=== PATIENT | female | born 1960 | race Caucasian/White ===

== ENCOUNTER → 2016-06-27 | Outpatient (REF) | payer MEDICARE ==
[2016-06-27 20:11] LABS: ALBUMIN 3.3 GM/DL (3.2-5.2); ALBUMIN/GLOBULIN RATIO 0.97 (1.00-1.93); ALKALINE PHOSPHATASE 73 U/L (45-117); ALT/SGPT 51 U/L (12-78); ANION GAP 7 MEQ/L (8-16); AST/SGOT 36 U/L (15-37); BILIRUBIN,TOTAL 0.9 MG/DL (0.2-1.0); BLOOD UREA NITROGEN 13 MG/DL (7-18); CALCIUM LEVEL 8.8 MG/DL (8.5-10.1); CARBON DIOXIDE LEVEL 32 MEQ/L (21-32); CHLORIDE LEVEL 104 MEQ/L (98-107); CREATININE FOR GFR 0.97 MG/DL (0.55-1.02); GLOMERULAR FILTRATION RATE > 60.0 (>51); GLUCOSE, FASTING 107 MG/DL (70-105); POTASSIUM SERUM 3.9 MEQ/L (3.5-5.1); SODIUM LEVEL 143 MEQ/L (136-145); TOTAL PROTEIN 6.7 GM/DL (6.4-8.2)
[2016-06-27 20:32] LABS: BASO % 0.4 % (0.0-1.0); EOS # 0.1 K/mm3 (0.0-0.50); EOS % 1.2 % (0.0-3.0); LARGE UNSTAINED CELL # 0.1 K/mm3 (0.0-0.4); LYMPH # 1.2 K/mm3 (1.5-4.5); LYMPH % 24.8 % (24.0-44.0); MEAN CORPUSCULAR HGB CONC 32.9 g/dl (32.0-36.5); MEAN CORPUSCULAR VOLUME 88.2 fl (80.0-96.0); MONO # 0.3 K/mm3 (0.0-0.8); MONO % 6.9 % (0.0-5.0); NEUTROPHILS % 63.7 % (36.0-66.0); PLATELET COUNT, AUTOMATED 176 k/mm3 (150-450); RED CELL DISTRIBUTION WIDTH 13.5 % (11.5-14.5); WHITE BLOOD COUNT 4.7 K/mm3 (4.0-10.0)
== END ==
LOC: M LABDRAW1 17:24
PROVIDERS: ATTEND Psychiatry & Neurology Neurology
DX: I10 Essential (primary) hypertension (principal); G35 Multiple sclerosis

== ENCOUNTER → 2016-07-07 | Outpatient (CLI) | payer MEDICARE ==
--- NOTE | 2016-07-07 14:02 | REP ---
MR BRAIN WITHOUT AND WITH CONTRAST: HISTORY: Multiple sclerosis. Contrast: ProHance 29 mL. COMPARISON: 03/24/2013 Several punctate areas of increased signal intensity are present in the periventricular white matter. These are unchanged compared to the previous study. There are no new areas of abnormal signal intensity. There is no intraparenchymal hemorrhage, infarct, mass or midline shift. There is no abnormal enhancement. The ventricular system is normal in appearance. There is no extracerebral collection. The sinuses are clear. IMPRESSION: There are several punctate areas of increased signal intensity in the periventricular white matter unchanged compared to the previous study. Signed by Adrián Beauchamp MD 07/07/2016 02:04 P
--- NOTE | 2016-07-07 14:05 | REP ---
MRA CAROTIDS WITHOUT CONTRAST: HISTORY: Dizziness. 2D [id number] MR angiography was performed at the level of the carotid bifurcations. The distal common carotid arteries and origins of the external and ___internal carotid arteries are normal. The vertebral arteries are patent. The left vertebral artery is dominant. There are no atherosclerotic lesions. IMPRESSION: Normal MRA carotids. Signed by Adrián Beauchamp MD 07/07/2016 02:07 P
== END ==
LOC: M RAD 10:01
PROVIDERS: ATTEND Psychiatry & Neurology Neurology
DX: G35 Multiple sclerosis (principal); R42 Dizziness and giddiness
CPT/HCPCS: 70547; 70553; A9576

== ENCOUNTER → 2017-02-06 | Outpatient (REF) | payer MEDICARE ==
[2017-02-06 14:05] LABS: BASO % 0.4 % (0.0-1.0); EOS # 0.1 10^3/uL (0.0-0.50); EOS % 1.2 % (0.0-3.0); IMMATURE GRANULOCYTE % 0.2 % (0-0); LYMPH % 19.7 % (24.0-44.0); MEAN CORPUSCULAR HGB CONC 33.3 g/dl (32.0-36.5); MEAN CORPUSCULAR VOLUME 84.1 fl (80.0-96.0); MONO # 0.3 10^3/uL (0.0-0.8); NEUTROPHILS # 3.8 10^3/uL (1.8-7.7); NEUTROPHILS % 72.5 % (36.0-66.0); PLATELET COUNT, AUTOMATED 247 10^3/uL (150-450); RED CELL DISTRIBUTION WIDTH 13.2 % (11.5-14.5); WHITE BLOOD COUNT 5.2 10^3/uL (4.0-10.0)
[2017-02-06 14:22] LABS: ALBUMIN 3.7 GM/DL (3.2-5.2); ALBUMIN/GLOBULIN RATIO 1.09 (1.00-1.93); BILIRUBIN,TOTAL 1.1 MG/DL (0.2-1.0); CALCIUM LEVEL 9.6 MG/DL (8.5-10.1); CREATININE FOR GFR 1.08 MG/DL (0.55-1.02); GLOMERULAR FILTRATION RATE 56.1 (>51); POTASSIUM SERUM 3.6 MEQ/L (3.5-5.1); TOTAL PROTEIN 7.1 GM/DL (6.4-8.2)
== END ==
LOC: M LABNEURO 13:20
PROVIDERS: ATTEND Psychiatry & Neurology Neurology
DX: G35 Multiple sclerosis (principal)

== ENCOUNTER → 2017-08-20 | Outpatient (REF) | payer MEDICARE, OTHER ==
[2017-08-20 19:00] LABS: BASO % 0.2 % (0.0-1.0); EOS # 0.1 10^3/uL (0.0-0.50); EOS % 1.9 % (0.0-3.0); HEMOGLOBIN 13.9 g/dl (12.0-15.5); IMMATURE GRANULOCYTE % 0.2 % (0-3.0); LYMPH # 1.4 10^3/uL (1.5-4.5); LYMPH % 25.9 % (24.0-44.0); MEAN CORPUSCULAR HEMOGLOBIN 28.4 pg (27.0-33.0); MEAN CORPUSCULAR HGB CONC 33.1 g/dl (32.0-36.5); MEAN CORPUSCULAR VOLUME 85.9 fl (80.0-96.0); MONO # 0.3 10^3/uL (0.0-0.8); MONO % 5.6 % (0.0-5.0); NEUTROPHILS # 3.5 10^3/uL (1.8-7.7); NEUTROPHILS % 66.2 % (36.0-66.0); PLATELET COUNT, AUTOMATED 188 10^3/uL (150-450); RED BLOOD COUNT 4.89 10^6/uL (4.00-5.40); RED CELL DISTRIBUTION WIDTH 13.8 % (11.5-14.5); WHITE BLOOD COUNT 5.3 10^3/uL (4.0-10.0)
[2017-08-20 19:07] LABS: ALBUMIN 3.5 GM/DL (3.2-5.2); ALBUMIN/GLOBULIN RATIO 0.97 (1.00-1.93); ALKALINE PHOSPHATASE 87 U/L (45-117); ALT/SGPT 48 U/L (12-78); ANION GAP 4 MEQ/L (8-16); AST/SGOT 35 U/L (7-37); BILIRUBIN,TOTAL 0.7 MG/DL (0.2-1.0); BLOOD UREA NITROGEN 17 MG/DL (7-18); CALCIUM LEVEL 8.6 MG/DL (8.5-10.1); CARBON DIOXIDE LEVEL 33 MEQ/L (21-32); CHLORIDE LEVEL 107 MEQ/L (98-107); CREATININE FOR GFR 0.93 MG/DL (0.55-1.30); GLOMERULAR FILTRATION RATE > 60.0 (>51); GLUCOSE, FASTING 101 MG/DL (70-100); POTASSIUM SERUM 4.1 MEQ/L (3.5-5.1); RHEUMATOID FACTOR QUANT < 10.0 IU/ML (<15.0); SODIUM LEVEL 144 MEQ/L (136-145); TOTAL PROTEIN 7.1 GM/DL (6.4-8.2)
[2017-08-20 19:31] LABS: ERYTHROCYTE SEDIMENTATION RATE 11 mm/hr (0-30)
[2017-08-22 14:17] LABS: ANTINUCLEAR ANTIBODIES DIRECT Negative (Negative)
== END ==
LOC: M LABNEURO 14:11
DX: G35 Multiple sclerosis (principal); M19.90 Unspecified osteoarthritis, unspecified site
CPT/HCPCS: 80053

== ENCOUNTER 2017-12-06 23:53 | Emergency (ER) | payer MEDICARE, OTHER ==
[2017-12-07] MEDS: LORazepam 2 MG/ML VIAL (J2060) IV (00:58)
[2017-12-07] MEDS: MORPHINE 4 MG/ML 1ML VIAL/SYRINGE (J2270) IV ×2 (00:58→01:45)
[2017-12-07] MEDS: ONDANSETRON 4MG/2ML VIAL (J2405) IV (00:58)
[2017-12-07 01:10] LABS: BASO % 0.3 % (0.0-1.0); EOS # 0.1 10^3/uL (0.0-0.50); EOS % 1.1 % (0.0-3.0); HEMATOCRIT 41.3 % (36.0-47.0); HEMOGLOBIN 14.1 g/dl (12.0-15.5); IMMATURE GRANULOCYTE % 0.3 % (0-3.0); LYMPH # 1.1 10^3/uL (1.5-4.5); LYMPH % 16.9 % (24.0-44.0); MEAN CORPUSCULAR HEMOGLOBIN 28.4 pg (27.0-33.0); MEAN CORPUSCULAR HGB CONC 34.1 g/dl (32.0-36.5); MEAN CORPUSCULAR VOLUME 83.3 fl (80.0-96.0); MONO # 0.5 10^3/uL (0.0-0.8); MONO % 7.8 % (0.0-5.0); NEUTROPHILS # 4.7 10^3/uL (1.8-7.7); NEUTROPHILS % 73.6 % (36.0-66.0); PLATELET COUNT, AUTOMATED 192 10^3/uL (150-450); RED BLOOD COUNT 4.96 10^6/uL (4.00-5.40); RED CELL DISTRIBUTION WIDTH 13.2 % (11.5-14.5); WHITE BLOOD COUNT 6.3 10^3/uL (4.0-10.0)
[2017-12-07 01:57] LABS: ANION GAP 11 MEQ/L (8-16); BLOOD UREA NITROGEN 16 MG/DL (7-18); CALCIUM LEVEL 8.9 MG/DL (8.5-10.1); CARBON DIOXIDE LEVEL 26 MEQ/L (21-32); CHLORIDE LEVEL 105 MEQ/L (98-107); CREATININE FOR GFR 1.14 MG/DL (0.55-1.30); GLOMERULAR FILTRATION RATE 52.7 (>51); GLUCOSE, FASTING 92 MG/DL (70-100); POTASSIUM SERUM 3.7 MEQ/L (3.5-5.1); SODIUM LEVEL 142 MEQ/L (136-145)
[2017-12-07 02:01] LABS: LACTIC ACID SEPSIS PROTOCOL 1.8 MMOL/L (0.4-2.0)
== END 2017-12-07 03:57 | disposition home or self-care (01) ==
LOC: M ED 23:53
DX: K42.9 Umbilical hernia without obstruction or gangrene (principal); R11.0 Nausea; G35 Multiple sclerosis; I10 Essential (primary) hypertension; E78.5 Hyperlipidemia, unspecified; Z79.899 Other long term (current) drug therapy
CPT/HCPCS: J2270

== ENCOUNTER → 2018-01-01 | Outpatient (REF) | payer MEDICARE, OTHER ==
[2018-01-01 17:13] LABS: BASO % 0.5 % (0.0-1.0); EOS # 0.1 10^3/uL (0.0-0.50); EOS % 1.1 % (0.0-3.0); HEMATOCRIT 42.6 % (36.0-47.0); LYMPH # 0.9 10^3/uL (1.5-4.5); LYMPH % 21.5 % (24.0-44.0); MEAN CORPUSCULAR HEMOGLOBIN 28.8 pg (27.0-33.0); MEAN CORPUSCULAR HGB CONC 32.9 g/dl (32.0-36.5); MEAN CORPUSCULAR VOLUME 87.7 fl (80.0-96.0); MONO # 0.4 10^3/uL (0.0-0.8); MONO % 8.9 % (0.0-5.0); PLATELET COUNT, AUTOMATED 243 10^3/uL (150-450); RED BLOOD COUNT 4.86 10^6/uL (4.00-5.40); RED CELL DISTRIBUTION WIDTH 13.8 % (11.5-14.5); WHITE BLOOD COUNT 4.4 10^3/uL (4.0-10.0)
[2018-01-01 17:23] LABS: ALBUMIN 3.6 GM/DL (3.2-5.2); ALKALINE PHOSPHATASE 96 U/L (45-117); ALT/SGPT 58 U/L (12-78); ANION GAP 7 MEQ/L (8-16); AST/SGOT 39 U/L (7-37); BILIRUBIN,TOTAL 0.8 MG/DL (0.2-1.0); BLOOD UREA NITROGEN 15 MG/DL (7-18); CALCIUM LEVEL 8.5 MG/DL (8.5-10.1); CARBON DIOXIDE LEVEL 29 MEQ/L (21-32); CHLORIDE LEVEL 105 MEQ/L (98-107); CREATININE FOR GFR 0.94 MG/DL (0.55-1.30); GLOMERULAR FILTRATION RATE > 60.0 (>51); GLUCOSE, FASTING 82 MG/DL (70-100); POTASSIUM SERUM 4.9 MEQ/L (3.5-5.1); SODIUM LEVEL 141 MEQ/L (136-145); TOTAL PROTEIN 7.2 GM/DL (6.4-8.2)
== END ==
LOC: M LABNEURO 16:59
DX: G35 Multiple sclerosis (principal)
CPT/HCPCS: 80053

== ENCOUNTER → 2018-02-11 | Outpatient (CLI) | payer MEDICARE ==
[~2018-02-11] MED LIST: GASTROGRAFIN SOLUTION 30ML (Q9963) As Ordered
== END ==
LOC: M RAD 11:04
DX: K43.0 Incisional hernia with obstruction, without gangrene (principal); K59.8 Other specified functional intestinal disorders; Z90.49 Acquired absence of other specified parts of digestive tract
CPT/HCPCS: Q9963

== ENCOUNTER 2018-03-22 08:31 | Day surgery (SDC) | payer MEDICARE ==
[~2018-03-22] VITALS: Ht 167.6 cm; Wt 138.7 kg
[~2018-03-22 08:31] MED LIST changes: +AMLO5TAB6 PO; +ATOR40TA75 PO; +AVON1KIT IM; +BACL10TA2 PO; +CELE1CAP9 PO; +ESCI20TA PO; -GASTROGRAFIN SOLUTION 30ML (Q9963) As Ordered; +LIDOCAINE 2% INJ 100 MG/5 ML SDV (FOR ANES.) As Ordered ONE; +LYRI150C PO; +MIDAZOLAM INJ 2 MG/2 ML VIAL (J2250) As Ordered ONE; +NORC7.5T35 PO; +OMEP40CA2 PO; +PROPOFOL 200 MG/20 ML VIAL As Ordered ONE; +ROCURONIUM BROMIDE 50 MG/5 ML VIAL As Ordered ONE; +VITA200028 PO; +VITA50005 PO; +fentaNYL 250 MCG/5 ML INJECTION (J3010) As Ordered ONE
[2018-03-22] MEDS ORDERED: LR 1,000 ML IV ONE (09:00)
[2018-03-22] MEDS ORDERED: BUPIVACAINE/EPIN 0.25% 30 ML VIAL As Ordered ONE (10:29)
[2018-03-22] MEDS ORDERED: KETOROLAC 60 MG/2 ML VIAL (J1885) As Ordered ONE (11:19)
[2018-03-22] MEDS ORDERED: NEOSTIGMINE 10 MG/10 ML VIAL (J2710) As Ordered ONE (11:19)
[2018-03-22] MEDS ORDERED: METOCLOPRAMIDE INJ 10MG/2ML VIAL (J2765) As Ordered ONE (11:19)
[2018-03-22] MEDS ORDERED: dexameTHASONE 4 MG/ML 1ML VIAL (J1100) As Ordered ONE (11:19)
[2018-03-22] MEDS ORDERED: ONDANSETRON 4MG/2ML VIAL (J2405) As Ordered ONE (11:19)
[2018-03-22] MEDS ORDERED: GLYCOPYRROLATE INJ 0.2 MG/ML 2 ML VIAL As Ordered ONE (11:19)
[2018-03-22] MEDS ORDERED: fentaNYL 100 MCG/2 ML INJECTION (J3010) As Ordered ONE (12:57)
[2018-03-22] MEDS ORDERED: PERCOCET 5MG/325MG TAB As Ordered ONE ×2 (12:57→14:27)
[2018-03-22] MEDS ORDERED: LR 1,000 ML IV SCH (13:00)
[2018-03-22] MEDS ORDERED: METOCLOPRAMIDE INJ 10MG/2ML VIAL (J2765) IV PRN (13:00)
[2018-03-22] MEDS ORDERED: ONDANSETRON 4MG/2ML VIAL (J2405) IV PRN (13:00)
[2018-03-22] MEDS: fentaNYL 100 MCG/2 ML INJECTION (J3010) IV PRN ×2 (13:00→13:05)
[2018-03-22] MEDS ORDERED: MEPERIDINE INJ 25 MG/ML VIAL (J2175) IV PRN (13:00)
[2018-03-22] MEDS: PERCOCET 5MG/325MG TAB PO PRN ×2 (13:03→14:28)
[2018-03-22] MEDS ORDERED: NORCO, ANEXSIA 5/325MG TABLET (HYDROcodone/ACETAMINOPHEN) PO PRN (13:15)
--- NOTE | 2018-03-22 15:08 | RO ---
DATE OF PROCEDURE: 03/22/[address] Brown PREOPERATIVE DIAGNOSIS: Incarcerated incisional hernia. POSTOPERATIVE DIAGNOSIS: Incarcerated incisional hernia. POSTOPERATIVE DIAGNOSIS: Laparoscopic incarcerated incisional hernia repair with mesh. SURGEON: Dr. Brown ENTERPRISE DATA ARCHITECT: Kathleen Steve ANESTHESIA: General. ESTIMATED BLOOD LOSS: 5 COMPLICATIONS: None. INDICATION FOR PROCEDURE: The patient 58-year-old female with a large incisional hernia just around the umbilicus, recommendation is to proceed laparoscopic possible open repair. The risks and benefits of the procedure not limited but including bleeding, infection, hernia formation, hernia recurrence, damage surrounding structure need for surgery discussed detail with the patient and informed consent was obtained and procedure was planned. PROCEDURE: The patient brought back to operating room six after sufficient sedation. Abdomen was sterilely prepped and draped. Next a time out was done to confirm proper patient and proper procedure. Following that a 5 mm incision was made in the left lower quadrant. The Veress needle inserted and the abdomen was insufflated to 50 mmHg mercury. Next Veress needle was removed and a 5 mm OptiVu port used to gain access to the abdomen. Once abdomen was entered another 5 mm port was placed in the left lower quadrant. There is a majority of the omentum all stuffed within this incision hernia. It was carefully dissected free using blunt dissection. Once it was completely reduced the rest of the hernia was dissected free using the Enseal along with the anterior abdominal wall and the distal falciform ligament to create a flap space for mesh placement. Once this was all freed up 12 cm round Parietex mesh was rolled up inside the abdomen. Then transvaginal sutures were brought out through the abdominal wall to hold it in place. 1 cm transvaginal sutures were placed, I started to place a row of secure strap tacks around but due to her large body habitus she was very wide. The angles were very difficult for tach placement. Therefore upon placing packs of mesh slid inferiorly to the point where we did not have sufficient coverage for the defect. I then removed the mesh from the abdomen and took a 9 cm round Parietex mesh fashioned it the same way with the transvaginal sutures and the restrapped tacks this time holding it in place. Once this was completed the abdomen was desufflated. Skin incisions closed with 4-0 Vicryl subcu sutures. The abdomen was cleaned and dried. Steri-Strips, 4x4 and tape were applied thus ending procedure.
[2018-03-22 15:10] VITALS: BP 118/63
== END 2018-03-22 15:17 | disposition home or self-care (01) ==
LOC: M SDC 08:31
PROVIDERS: ATTEND Surgery
DX: K43.0 Incisional hernia with obstruction, without gangrene (principal); I10 Essential (primary) hypertension; E78.5 Hyperlipidemia, unspecified; K21.9 Gastro-esophageal reflux disease without esophagitis; Z79.899 Other long term (current) drug therapy
CPT/HCPCS: 49653; C1781; J0690; J1100; J1885; J2250; J2405; J2710; J2765; J3010

== ENCOUNTER 2018-10-16 16:06 | Outpatient (CLI) | payer MEDICARE ==
[~2018-10-16] VITALS: Ht 167.6 cm; Wt 138.7 kg
[~2018-10-16 16:06] MED LIST changes: -LIDOCAINE 2% INJ 100 MG/5 ML SDV (FOR ANES.) As Ordered ONE; -MIDAZOLAM INJ 2 MG/2 ML VIAL (J2250) As Ordered ONE; +NORC1TAB8 PO; -NORC7.5T35 PO; -PROPOFOL 200 MG/20 ML VIAL As Ordered ONE; -ROCURONIUM BROMIDE 50 MG/5 ML VIAL As Ordered ONE; -fentaNYL 250 MCG/5 ML INJECTION (J3010) As Ordered ONE
[2018-10-16 16:15] VITALS: BP 137/83
[2018-10-16] MEDS ORDERED: methylPREDNISolone 500 MG, VIAL MATE ADAPTER 1 EACH in D5W 250 ML IV ONE (16:30)
[2018-10-16 17:40] VITALS: BP 132/75
== END 2018-10-16 17:40 | disposition home or self-care (01) ==
LOC: M INFU 16:06
PROVIDERS: ATTEND Psychiatry & Neurology Neurology
DX: G35 Multiple sclerosis (principal)
CPT/HCPCS: 96365; J2930

== ENCOUNTER → 2018-11-29 | Outpatient (CLI) | payer MEDICARE ==
--- NOTE | 2018-11-29 11:50 | REP ---
MRI of the brain without contrast Indication: Multiple sclerosis. Other muscle spasm. Disorder of muscle, unspecified. Comparison: MRI brain of 07/07/2016. Technique: Multi sequence multiplanar MRI of the brain utilizing MS protocol was performed without and with contrast. A total 28 ml of ProHance was administered intravenously. Findings: There is no restricted diffusion to suggest acute ischemia or infarction. There are minimal T2 hyperintensities within the periventricular subcortical white matter which are nonspecific, similar to prior. There is no abnormal enhancement. The ventricles and sulci are symmetric. There is no intra- or extra-axial fluid collection. There is no mass effect. There is no midline shift or basal cistern effacement. The visualized flow voids are preserved. The visualized paranasal sinuses and mastoid air cells are clear. Impression: Minimal periventricular and subcortical white matter changes which are nonspecific but similar to prior. No new or enhancing lesion. Electronically Signed by Kimberly Bruce MD 11/29/2018 11:41 A
== END ==
LOC: M PLARAD 09:45
PROVIDERS: ATTEND Psychiatry & Neurology Neurology
DX: G35 Multiple sclerosis (principal)

== ENCOUNTER → 2019-05-16 | Outpatient (CLI) | payer MEDICARE ==
[~2019-05-16] MED LIST changes: -OMEP40CA2 PO; +OMEP40CA97 PO
--- NOTE | 2019-05-16 12:27 | REPVR ---
PROCEDURE INFORMATION: Exam: MR Lumbar Spine Without Contrast. Exam date and time: 05/16/2019 11:35 AM Age: 59 years old Clinical indication: Low back pain; Additional info: Lbp, radiculopathy TECHNIQUE: Imaging protocol: Multiplanar magnetic resonance images of the lumbar spine without intravenous contrast. COMPARISON: MRI-Spine, L.S. without con 01/08/2015 8:53 AM FINDINGS: Vertebrae: Unremarkable. Spinal cord: Normal signal. No cord compression. L1-L2: No significant disc disease. No significant spinal canal stenosis. No neural foraminal stenosis. L2-L3: There is disc desiccation. There is mild disc bulging. There is facet arthropathy and ligamentum flavum hypertrophy. There is mild spinal canal stenosis. L3-L4: There is degenerative disc disease including disc space narrowing and dessication. There is mild disc bulging. There is facet arthropathy and ligamentum flavum hypertrophy. There is mild spinal canal stenosis. L4-L5: There is grade 1 anterior spondylolisthesis at L4/5. There is disc space narrowing and desiccation. There are moderate degenerative end plate changes at this level. There is mild disc bulging. There is a small right paracentral disc protrusion. There is moderate bilateral neural foraminal narrowing, right worse than left. There is exuberant facet arthropathy and ligamentum flavum hypertrophy. There is mild/moderate spinal canal stenosis. L5-S1: There is disc space narrowing and disc desiccation within the lower thoracic spine. There is minimal retrolisthesis at L5/S1. There is degenerative disc disease including disc space narrowing and dessication. There is a moderate disc bulge with a small superimposed central disc herniation. Disc bulging extends into both neural foramen causing moderate bilateral neural foraminal narrowing, right worse than left. Soft tissues: Unremarkable. IMPRESSION: 1. There is disc space narrowing and disc desiccation within the lower thoracic spine. 2. Multilevel degenerative changes involving the lumbar spine causing variable degrees of spinal canal and neuroforaminal narrowing as described above. Electronically signed by: Boston Estes On 05/16/2019 12:27:39 PM
== END ==
LOC: M PLARAD 10:44
PROVIDERS: ATTEND Psychiatry & Neurology Neurology
DX: M51.26 Other intervertebral disc displacement, lumbar region (principal); M51.27 Other intervertebral disc displacement, lumbosacral region; M51.36 Other intervertebral disc degeneration, lumbar region; M51.37 Other intervertebral disc degeneration, lumbosacral region; M54.16 Radiculopathy, lumbar region

== ENCOUNTER 2019-05-26 11:24 | Emergency (ER) | payer MEDICARE ==
[~2019-05-26] VITALS: Ht 167.6 cm; Wt 137.3 kg
[2019-05-26] MEDS ORDERED: OXYC1TAB23 (11:32)
[2019-05-26] MEDS ORDERED: PREG150C (11:32)
[2019-05-26] MEDS ORDERED: CYCL10TA (11:32)
--- NOTE | 2019-05-26 12:33 | REP ---
Duplex extremity venous ultrasound: Left lower extremity. History: Left knee injection. Swelling and pain. Rule out DVT. Findings: The deep veins are anechoic and fully compressible from the groin to the popliteal fossa in the left lower extremity. Color flow imaging is homogeneous. Spectral Doppler interrogation demonstrates intact respiratory variation in flow and normal manual augmentation of flow. There is no evidence of deep vein thrombosis. Impression: Negative left lower extremity duplex venous ultrasound. No evidence of deep vein thrombosis. Electronically Signed by Antonio Walton MD 05/26/2019 12:24 P
--- NOTE | 2019-05-26 12:46 | REP ---
Ultrasound of the left knee soft tissues: The patient recently had a left knee injection. It is unclear whether this was an intra-articular or periarticular injection. There is a focal fluid collection posterior and posteromedial measuring 13.5 x 2.3 x 4.2 cm, possibly a Tello's cyst. In addition, there is focal soft tissue edema of the proximal left calf posteriorly. Electronically Signed by Haris Cyr MD 05/26/2019 12:38 P
[2019-05-26 13:36] VITALS: BP 99/61
== END 2019-05-26 13:38 | disposition home or self-care (01) ==
LOC: M ED 11:24
DX: M71.22 Synovial cyst of popliteal space [Baker], left knee (principal); I10 Essential (primary) hypertension; E78.5 Hyperlipidemia, unspecified; K21.9 Gastro-esophageal reflux disease without esophagitis; Z79.899 Other long term (current) drug therapy

== ENCOUNTER → 2019-09-25 | Outpatient (CLI) | payer MEDICARE ==
[~2019-09-25] MED LIST changes: +AMLO1TAB24 PO; -AMLO5TAB6 PO; +CYCL-707; +OXYC1TAB23; +PREG150C
--- NOTE | 2019-10-08 11:29 | SLEEPCENT ---
DATE OF PROCEDURE: 09/25/2019 ORDERED BY: ABILIO Godinez Nocturnal polysomnography was performed for evaluation of sleep physiology in this patient with history of excessive somnolence, snoring, and nonrestorative sleep. 8 hours and 14 minutes of data were reviewed. There were 444.5 minutes of sleep identified. Sleep latency was mildly prolonged at 28.5 minutes. Rapid eye movement (REM) latency was more so prolonged at 171 minutes. Sleep architecture showed some fragmentation and poor sleep progression. There were 2 REM cycles noted. Overall sleep efficiency was 90.8%. The patient's electrocardiogram showed a sinus rhythm with an average heart rate of 48 beats per minute. Electroencephalogram (EEG) showed normal waveforms for awake and sleep. There were 161 respiratory events identified of 10 seconds in duration or greater for an apnea-hypopnea index of 21.7. The events were obstructive not exclusive to sleep stage nor body posture. Arousals from respiratory events occurred 5.8 times per hour and oxygen desaturations were seen into the 70s. There was some activity noted in the limb leads but limb movement arousal index was only 2.8. IMPRESSION: Obstructive sleep apnea syndrome (G47.33). Apnea-hypopnea index 21.7. RECOMMENDATIONS: The patient should be encouraged to return to the sleep disorder center for pressure therapy. In the interim, alcohol and sedative avoidance should be practiced and caution exercised during operation of motor vehicles.
== END ==
LOC: M SLEEP 20:00
PROVIDERS: ATTEND Nurse Practitioner Family
DX: R06.83 Snoring (principal)

== ENCOUNTER → 2019-10-31 | Outpatient (CLI) | payer MEDICARE ==
--- NOTE | 2019-11-28 14:32 | SLEEPCENT ---
DATE: 10/31/2019 ORDERED BY: Marly Littlejohn Nocturnal polysomnography was performed for the titration of pressure therapy in this patient with obstructive sleep apnea syndrome, apnea-hypopnea index 21.7. For testing, a ResMed AirFit F20 full-face mask of small size was used. There was 4 cm of water pressure applied to the circuit, and the lights were extinguished. There was 7 hours and 47 minutes of data reviewed. There was 385.5 minutes of sleep identified. Sleep latency was normal at 16 minutes. REM latency was delayed at 177 minutes. Sleep architecture improved on optimal pressure therapy. There were two REM cycles noted. Overall sleep efficiency is 84.3%. The electrocardiogram showed a sinus rhythm with an average heart rate of 42 beats per minute. EEG showed normal waveforms for wake and sleep. Respiratory events were full palliated with CPAP at a pressure of +10, and remaining measures of sleep physiology were normal. IMPRESSION: Obstructive sleep apnea syndrome (G47.33). RECOMMENDATION: Nightly use of pressure therapy, 10 cm of water. MTDD
== END ==
LOC: M SLEEP 20:00
PROVIDERS: ATTEND Nurse Practitioner Family
DX: G47.33 Obstructive sleep apnea (adult) (pediatric) (principal)

== ENCOUNTER → 2020-05-07 | Outpatient (CLI) | payer MEDICARE ==
[~2020-05-07] MED LIST changes: -ESCI20TA PO; +ESCI20TA16 PO
--- NOTE | 2020-05-07 21:12 | REPVR ---
PROCEDURE INFORMATION: Exam: MR Lumbar Spine Without Contrast. Exam date and time: 05/07/2020 2:37 PM Age: 60 years old Clinical indication: Low back pain; Additional info: M54.5- lbp TECHNIQUE: Imaging protocol: Multiplanar magnetic resonance images of the lumbar spine without intravenous contrast. COMPARISON: MRI-Spine, L.S. without con 05/16/2019 11:18 AM FINDINGS: Vertebrae: T1 weighted images demonstrate mottled decreased signal throughout the vertebrae, findings which can be seen in association with chronic anemia or other myeloproliferative abnormality. This should be correlated with clinical evaluation. Slight anterolisthesis of L4 on L5. Spinal cord: Normal signal. No cord compression. L1-L2: See "L5-S1" finding. L2-L3: No significant disc disease. No significant spinal canal stenosis. No neural foraminal stenosis. L3-L4: There is a moderate central spinal stenosis at L3-L4 secondary to diffuse annular bulging, thickened ligamentum flavum with facet joint arthropathy. L4-L5: There is a severe degenerative central spinal stenosis at L4-L5 secondary to the anterolisthesis of L4-L5, diffuse annular bulging, thickened ligamentum flavum with facet joint arthropathy. Moderate foraminal narrowing on the right. L5-S1: Diffusely bulging annulus at L5-S1. Moderate foraminal stenosis on the left and moderate to severe foraminal stenosis on the right. Bilateral facet joint arthropathy with fluid in the left facet joint suggesting synovitis. Soft tissues: Unremarkable. IMPRESSION: 1. T1 weighted images demonstrate mottled decreased signal throughout the vertebrae, findings which can be seen in association with chronic anemia or other myeloproliferative abnormality. This should be correlated with clinical evaluation. 2. Moderate central spinal stenosis L3-L4 and severe central spinal stenosis L4-L5. 3. Bilateral foraminal stenosis at L5-S1 as described above. 4. Bilateral facet joint arthropathy L5-S1 with possible synovitis on the left. Electronically signed by: Jr Samayoa On 05/07/2020 21:12:31 PM
== END ==
LOC: M PLARAD 12:38
PROVIDERS: ATTEND Psychiatry & Neurology Neurology
DX: M48.061 Spinal stenosis, lumbar region without neurogenic claudication (principal); M54.16 Radiculopathy, lumbar region; M51.36 Other intervertebral disc degeneration, lumbar region; M51.37 Other intervertebral disc degeneration, lumbosacral region; M51.27 Other intervertebral disc displacement, lumbosacral region

== ENCOUNTER → 2021-10-25 | Outpatient (CLI) | payer MEDICARE ==
[~2021-10-25] MED LIST changes: +ERGO500029 PO; +GLYCCAP PO; +LEXA1TAB PO; +METO25TA4 PO; +OMEP40CA4 PO; -OMEP40CA97 PO
== END ==
LOC: M PLAIMG 12:34
PROVIDERS: ATTEND Psychiatry & Neurology Neurology
DX: M54.16 Radiculopathy, lumbar region (principal); M48.061 Spinal stenosis, lumbar region without neurogenic claudication; M51.26 Other intervertebral disc displacement, lumbar region; M47.896 Other spondylosis, lumbar region; M47.897 Other spondylosis, lumbosacral region; M48.05 Spinal stenosis, thoracolumbar region; M51.25 Other intervertebral disc displacement, thoracolumbar region; M51.36 Other intervertebral disc degeneration, lumbar region

== ENCOUNTER → 2022-05-02 | Outpatient (CLI) | payer MEDICARE | LOC: M LABSMTC 09:04 | PROVIDERS: ATTEND Neurological Surgery | DX: Z11.52 Encounter for screening for COVID-19 (principal) ==

== ENCOUNTER 2024-09-24 07:36 | Outpatient (CLI) | payer MEDICARE ==
[~2024-09-24] VITALS: Ht 167.6 cm; Wt 116.0 kg
[~2024-09-24 07:36] MED LIST changes: +CELE0.09 PO; -CELE1CAP9 PO; -PREG150C; +PREG150C2
[2024-09-24 07:55] VITALS: BP 143/91; O2SAT 98
[2024-09-24] MEDS: ACETAMINOPHEN 650 MG PO ONE (08:09)
[2024-09-24] MEDS: OCRELIZUMAB 300 MG in NS 250 ML IV ONE (08:58)
[2024-09-24 09:30] VITALS: BP 142/91; O2SAT 99
[2024-09-24 10:00] VITALS: BP 140/87; O2SAT 100
[2024-09-24 10:30] VITALS: BP 134/80; O2SAT 99
[2024-09-24 11:00] VITALS: BP 147/73; O2SAT 100
[2024-09-24 11:55] VITALS: BP 138/86; O2SAT 99
== END 2024-09-24 11:55 ==
LOC: M INFU 07:36
PROVIDERS: ATTEND Psychiatry & Neurology Neurology
DX: G35 Multiple sclerosis (principal); Z88.8 Allergy status to other drugs, medicaments and biological substances
CPT/HCPCS: 96365; 96366; 96375; J2350; J2919

== ENCOUNTER 2024-11-17 18:26 | Inpatient (IN) | payer MEDICARE, MEDICAID ==
[~2024-11-17] VITALS: Ht 167.6 cm; Wt 115.6 kg
[2024-11-17 21:16] LABS: BASO # 0.1 10^3/uL (0.0-0.2); BASO % 0.8 % (0.0-1.0); EOS # 0.0 10^3/uL (0.0-0.5); EOS % 0.3 % (0.0-3.0); LYMPH # 1.3 10^3/uL (1.5-5.0); LYMPH % 20.3 % (24.0-44.0); MONO # 0.6 10^3/uL (0.0-0.8); MONO % 9.7 % (2.0-8.0); NEUTROPHILS # 4.4 10^3/uL (1.5-8.5); NEUTROPHILS % 68.6 % (36.0-66.0); PLATELET COUNT, AUTOMATED 245 10^3/uL (150-450)
[2024-11-17 21:29] LABS: APPEARANCE, URINE CLEAR (CLEAR); BACTERIA, URINE AUTO NEGATIVE (NEGATIVE); BILIRUBIN, URINE AUTO NEGATIVE (NEGATIVE); BLOOD, URINE BLOOD NEGATIVE (NEGATIVE); GLUCOSE, URINE (UA) AUTO NEGATIVE (NEGATIVE); KETONE, URINE AUTO NEGATIVE (NEGATIVE); LEUKOCYTE ESTERASE, URINE AUTO TRACE (NEGATIVE); NITRITE, URINE AUTO NEGATIVE (NEGATIVE); PROTEIN, URINE AUTO NEGATIVE (NEGATIVE); RBC, URINE AUTO 0 /HPF (0-3); SPECIFIC GRAVITY URINE AUTO 1.005 (1.002-1.035); SQUAMOUS EPITHELIAL CELL UR AU 5 /HPF (0-6); UROBILINOGEN, URINE AUTO 0.2 mg/dL (0.0-2.0); WBC, URINE AUTO 4 /HPF (0-3)
[2024-11-17 21:37] LABS: CK-MB VALUE MASS < 1.0 NG/ML (<3.6)
[2024-11-17 21:39] LABS: ALT/SGPT 126 U/L (7.0-40); AST/SGOT 168 U/L (<34); CALCIUM LEVEL 8.9 MG/DL (8.3-10.6); CARBON DIOXIDE LEVEL 28 MMOL/L (20-31); CHLORIDE LEVEL 103 MMOL/L (98-107); CREATININE FOR GFR 1.02 MG/DL (0.55-1.30); GLOMERULAR FILTRATION RATE 62.2 (>45); MAGNESIUM LEVEL 2.5 MG/DL (1.8-2.4); POTASSIUM SERUM 4.5 MMOL/L (3.5-5.1); SODIUM LEVEL 140 MMOL/L (136-145)
[2024-11-17] MEDS: BISACODYL 10 MG SUPP PR ONE (21:43)
[2024-11-17 21:45] LABS: CPK CREATINE PHOSPHOKINASE 30 U/L (34-145)
[2024-11-17] MEDS ORDERED: ISOVUE-370 76% 100 ML VIAL As Ordered ONE (22:50)
[2024-11-17] MEDS: MORPHINE 4 MG/ML 1 ML VIAL IV ONE (23:56)
[2024-11-17] MEDS: NS (Normal Saline) 0.9% 1,000 ML IV ONE (23:56)
[2024-11-18] MEDS: LIDOCAINE 5% PATCH TD ONE (00:33)
[2024-11-18] MEDS ORDERED: MAALOX 30 ML SUSP *UDC PO PRN (00:45)
[2024-11-18] MEDS: NS (Normal Saline) 0.9% 1,000 ML IV SCH (01:20)
[2024-11-18] MEDS: KETOROLAC 30 MG/ML 1 ML VIAL IV ONE (03:19)
[2024-11-18] MEDS: KETOROLAC 30 MG/ML 1 ML VIAL IV SCH (05:24)
[2024-11-18] MEDS: HEPARIN SOD 5000 UNITS/ML 1 ML VIAL/SYRINGE SC SCH (05:25)
[2024-11-18 06:41] LABS: BASO # 0.1 10^3/uL (0.0-0.2); BASO % 0.9 % (0.0-1.0); EOS # 0.0 10^3/uL (0.0-0.5); EOS % 0.2 % (0.0-3.0); LYMPH # 1.1 10^3/uL (1.5-5.0); LYMPH % 19.4 % (24.0-44.0); MONO # 0.6 10^3/uL (0.0-0.8); MONO % 9.6 % (2.0-8.0); NEUTROPHILS # 4.0 10^3/uL (1.5-8.5); NEUTROPHILS % 69.4 % (36.0-66.0); PLATELET COUNT, AUTOMATED 208 10^3/uL (150-450)
[2024-11-18 07:18] LABS: ALT/SGPT 113.0 U/L (7.0-40); AST/SGOT 121.0 U/L (<34); CALCIUM LEVEL 9.0 MG/DL (8.3-10.6); CARBON DIOXIDE LEVEL 27.0 MMOL/L (20-31); CHLORIDE LEVEL 105.0 MMOL/L (98-107); CREATININE FOR GFR 1.02 MG/DL (0.55-1.30); GLOMERULAR FILTRATION RATE 62.2 (>45); MAGNESIUM LEVEL 2.4 MG/DL (1.8-2.4); POTASSIUM SERUM 4.7 MMOL/L (3.5-5.1); SODIUM LEVEL 142.0 MMOL/L (136-145)
[2024-11-18] MEDS ORDERED: ACETAMINOPHEN 500 MG TAB PO PRN (08:10)
[2024-11-18] MEDS ORDERED: PERCOCET 5MG/325MG TAB PO PRN (08:10)
[2024-11-18] MEDS ORDERED: CYCL-707 PO (08:21)
[2024-11-18] MEDS ORDERED: CONS10SO3 PO (08:21)
[2024-11-18] MEDS ORDERED: SENN1TAB96 PO (08:21)
[2024-11-18] MEDS ORDERED: LIDO1PAD TOP (08:21)
[2024-11-18] MEDS ORDERED: OXYC1TAB23 PO (08:21)
[2024-11-18] MEDS ORDERED: HYDR-3713 PO (08:21)
[2024-11-18] MEDS ORDERED: BUPR200T45 PO (08:21)
[2024-11-18] MEDS ORDERED: METH4PACK PO (08:21)
[2024-11-18] MEDS ORDERED: HOME MED LIST COMPLETE! XX SCH (08:25)
[2024-11-18] MEDS: PREGABALIN 75 MG CAP PO SCH (10:24)
[2024-11-18] MEDS: BISACODYL 10 MG SUPP PR SCH (10:24)
[2024-11-18] MEDS: SENNOSIDES/DOCUSATE SODIUM 8.6 MG/50MG TAB PO SCH ×2 (10:24→21:47)
[2024-11-18] MEDS: PERCOCET 5MG/325MG TAB PO PRN (10:25)
[2024-11-18] MEDS: BACLOFEN 10 MG TAB PO SCH (10:25)
[2024-11-18 13:10] VITALS: BP 95/70; TEMP 97.7; O2SAT 97
[2024-11-18 16:08] VITALS: BP_SYST 101; BP_SYST 102; BP_SYST 75; BP_DIAS 48; BP_DIAS 56; BP_DIAS 57
[2024-11-18] MEDS: MAGNESIUM CITRATE 300 ML BTL PO ONE (18:11)
[2024-11-18 20:00] VITALS: BP 133/77; TEMP 97.9; O2SAT 98
[2024-11-18] MEDS ORDERED: SENNOSIDES/DOCUSATE SODIUM 8.6 MG/50MG TAB PO SCH (21:00)
[2024-11-18] MEDS ORDERED: MIRALAX *UNIT DOSE* 17 GM PACKET PO SCH (21:00)
[2024-11-18] MEDS: MIRALAX *UNIT DOSE* 17 GM PACKET PO SCH (21:42)
[2024-11-18] MEDS: LIDOCAINE 5% PATCH TD SCH (21:43)
[2024-11-19 04:00] VITALS: BP 129/72; TEMP 97.5; O2SAT 96
[2024-11-19 06:29] LABS: PLATELET COUNT, AUTOMATED 208 10^3/uL (150-450)
[2024-11-19 07:00] LABS: C REACTIVE PROTEIN QUANTITATIV < 0.50 MG/DL (<1.0)
[2024-11-19 07:44] LABS: ALT/SGPT 79 U/L (7.0-40); AST/SGOT 58 U/L (<34); CALCIUM LEVEL 9.1 MG/DL (8.3-10.6); CARBON DIOXIDE LEVEL 29 MMOL/L (20-31); CHLORIDE LEVEL 106 MMOL/L (98-107); CREATININE FOR GFR 1.04 MG/DL (0.55-1.30); GLOMERULAR FILTRATION RATE 60.8 (>45); MAGNESIUM LEVEL 2.8 MG/DL (1.8-2.4); POTASSIUM SERUM 4.2 MMOL/L (3.5-5.1); SODIUM LEVEL 146 MMOL/L (136-145)
[2024-11-19] MEDS: MAGNESIUM CITRATE 300 ML BTL PO ONE (10:33)
[2024-11-19] MEDS: BISACODYL ENEMA 10 MG/30 ML PR ONE (10:33)
[2024-11-19 11:50] VITALS: BP 105/68; TEMP 97.9; O2SAT 98
[2024-11-19 19:46] VITALS: BP 106/67; TEMP 97.9; O2SAT 95
[2024-11-20 04:09] VITALS: BP 119/75; TEMP 97.5; O2SAT 98
[2024-11-20 04:44] VITALS: BP_SYST 111; BP_SYST 112; BP_SYST 75; BP_DIAS 50; BP_DIAS 66
[2024-11-20 04:51] VITALS: BP 124/70
[2024-11-20 06:42] LABS: PLATELET COUNT, AUTOMATED 204 10^3/uL (150-450)
[2024-11-20 07:08] LABS: ALT/SGPT 59.0 U/L (7.0-40); AST/SGOT 38.0 U/L (<34); CALCIUM LEVEL 8.6 MG/DL (8.3-10.6); CARBON DIOXIDE LEVEL 32.0 MMOL/L (20-31); CHLORIDE LEVEL 106.0 MMOL/L (98-107); CREATININE FOR GFR 1.27 MG/DL (0.55-1.30); GLOMERULAR FILTRATION RATE 47.8 (>45); MAGNESIUM LEVEL 3.1 MG/DL (1.8-2.4); POTASSIUM SERUM 4.6 MMOL/L (3.5-5.1); SODIUM LEVEL 146.0 MMOL/L (136-145)
[2024-11-20 11:25] VITALS: BP 125/70; TEMP 97.9; O2SAT 98
== END 2024-11-20 12:03 | disposition home or self-care (01) | DRG 312 ==
LOC: M ED 18:26 → M ED INP 11-18 00:43 → M MSPAV 11-18 12:51
PROVIDERS: ADMIT Student in an Organized Health Care Education/Training Program; ATTEND Family Medicine
PROC: B246ZZZ Ultrasonography of Right and Left Heart (ICD-10-PCS; principal; 2024-11-18)
DX: I95.1 Orthostatic hypotension (principal); I10 Essential (primary) hypertension; E78.5 Hyperlipidemia, unspecified; G35 Multiple sclerosis; M51.369 Other intervertebral disc degeneration, lumbar region without mention of lumbar back pain or lower extremity pain; R74.01 Elevation of levels of liver transaminase levels; M54.50 Low back pain, unspecified; G89.29 Other chronic pain; K59.00 Constipation, unspecified; Z79.899 Other long term (current) drug therapy; Z88.6 Allergy status to analgesic agent; Z90.49 Acquired absence of other specified parts of digestive tract

== ENCOUNTER → 2025-02-21 | Outpatient (CLI) | payer MEDICARE, MEDICAID ==
[~2025-02-21] MED LIST changes: +BUPR200T45 PO; +CONS10SO3 PO; +CYCL-707 PO; +HYDR-3713 PO; +LIDO1PAD TOP; +METH4PACK PO; +OXYC1TAB23 PO; +SENN1TAB96 PO
== END ==
LOC: M SLEEP 20:00
PROVIDERS: ATTEND Physician Assistant
DX: G47.33 Obstructive sleep apnea (adult) (pediatric) (principal)